=== PATIENT | male | born 1965 | race Caucasian/White ===

== ENCOUNTER 2020-08-12 15:45 | Outpatient (REF) | payer BC, SELFPAY | END 2020-08-12 15:46 | disposition home or self-care (01) | LOC: HO.LAB 15:45 | PROVIDERS: Visit Provider Internal Medicine | DX: Z20.828 Contact with and (suspected) exposure to other viral communicable diseases (principal) | CPT/HCPCS: 87635 ==

== ENCOUNTER 2023-08-23 10:59 | Outpatient (AMB) | payer BC, SELFPAY ==
--- NOTE | 2023-08-23 11:06 | MHC.OFFWIV ---
Intake Vital Signs 08/23/23 11:09 Height 5 ft 9 in Weight 208 lb BMI 30.7 BP 130/88 Blood Pressure Location Lt brachial Position Sitting Pulse 83 Pulse Source Pulse Oximeter Temp 98.0 F Pulse Oximetry (%) 97 Oxygen Delivery Method Room Air Intake Visit Reasons: EP SOB 1 week/RT Hamstring (pulled) Intake Note: pt is here today for SOB 1 week/RT hamstring mo ago and shortness of breath in the last week Allergies No Known Allergies Allergy (Unknown, Verified 08/23/23 11:07) Do you need a note to return to daycare/school/sports/work: Yes HPI HPI Comments History of Present Illness Details The patient presents Urgent Care for evaluation of shortness of breath. 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 Typically when he walks he does not have any difficulty with shortness of breath. He states that for the past week when he walks up inclines he developed some shortness of breath. He has never had this difficulty before. Patient does admit to cigarette smoking. He has never been diagnosed with COPD. He denies fever chills nausea vomiting. He does have a cough in the morning but this does not persist throughout the day. [facility] Medical History (Updated 01/10/21 @ 16:57 by Joe Stewart MD) Erectile dysfunction Fatty liver Pulmonary nodule Hypercholesterolemia Tobacco abuse Surgical History (Updated 09/07/20 @ 08:33 by DENNIS Shen) History of inguinal hernia repair Family History (Updated 09/07/20 @ 08:33 by DENNIS Shen) Father Liver cancer Hepatitis C Mother Lung cancer Review of Systems ENT Denies dizziness, Reports nasal congestion and Reports sore throat Card Denies rapid heart rate GI Denies dyspepsia and Denies heartburn Musc Denies arthralgias and Denies muscle cramps Neuro Denies dizziness, Denies focal weakness and Denies Other visual disturbances Physical Exam Vital Signs: Last Vital Signs Temp 98.0 F 08/23/23 11:09 Pulse 83 08/23/23 11:09 BP 130/88 08/23/23 11:09 Pulse Ox 97 08/23/23 11:09 Oxygen Delivery Method Room Air 08/23/23 11:09 BMI result Body Mass Index 30.7 Const General: healthy appearing and no acute distress HEENT Mouth: Normal oral and palatal mucosa present Resp Effort & Inspection: normal respiratory effort and able to speak in complete sentences Auscultation: clear to auscultation bilaterally Cardio Rate: regular rate Rhythm: regular rhythm Assessment & Plan Assessment & Plan (1) TATUM (dyspnea on exertion): Code(s): R06.09 - Other forms of dyspnea Plan Chest x-ray does not show any for infiltrates. Final report pending by Radiology. Given that the patient is experiencing dyspnea on exertion likely underlying COPD is my suspicion. We will prescribe albuterol to take with him to work and when he starts to feel short of breath to use 2 puffs every 4-6 hours. He is instructed follow up with his doctor for definitive diagnosis and possible referral to pulmonology. Patient comfortable with plan. Orders: Orders XR chest 2V Today R07.81 - Pleurodynia Medications: New albuterol sulfate 90 mcg/actuation 2 inhalations inhalation QID PRN 6.7 grams 0RF shortness of breath or wheezing inhalational spacing device (Aerochamber MV spacer) As directed 1 ea 0RF Coding Level of Care Code Est Pt Level 3 (81141) Diagnoses TATUM (dyspnea on exertion) R06.09
[2023-08-23 11:09] VITALS: BP 130/88; PULSE 83; TEMP 36.7; O2SAT 97; BMI 30.7
== END 2023-08-23 13:04 | disposition home or self-care (01) ==
PROVIDERS: PCP Family Medicine; Visit Provider Emergency Medicine
DX: R06.09 Other forms of dyspnea (principal)
CPT/HCPCS: 99213

== ENCOUNTER 2023-08-23 11:42 | Outpatient (REF) | payer BC, SELFPAY ==
--- NOTE | ~2023-08-23 | XR_ITS ---
EXAMINATION: XR CHEST CLINICAL INFORMATION: Cough. Shortness of breath. COMPARISON: 10/20/2019 TECHNIQUE: 2 views of the chest were obtained. FINDINGS: The lungs are well expanded. Patchy airspace disease at the right lung base. No pleural effusion. Cardiac silhouette is unchanged. XR/XR chest 2V IMPRESSION: Possible acute infiltrate at the right lung base. Advise clinical correlation. Follow-up imaging is recommended.
== END 2023-08-23 11:43 | disposition home or self-care (01) ==
LOC: HO.HMGCX 11:42
PROVIDERS: PCP Family Medicine; Visit Provider Internal Medicine Endocrinology, Diabetes & Metabolism
DX: R07.81 Pleurodynia (principal)
CPT/HCPCS: 71046

== ENCOUNTER 2023-09-20 22:50 | Emergency (ER) | payer BC, SELFPAY ==
--- NOTE | ~2023-09-20 | XR_ITS ---
EXAMINATION: XR CHEST CLINICAL INFORMATION: Chest wall and rib pain. COMPARISON: Radiographs of the chest done on 08/23/2023. TECHNIQUE: 2 views of the chest were obtained. FINDINGS: Previously documented linear airspace disease at right lung base persists. In addition, new linear airspace disease is noted at left lung base. The remainder of the lung hi are clear. The cardiomediastinal silhouette is within normal limit. No evidence of pleural effusion or pneumothorax. Visualized upper abdomen is unremarkable. XR/XR chest 2V IMPRESSION: Bibasilar airspace disease, persists on the right since 08/23/2023 and new on the left. No other significant change.
--- NOTE | ~2023-09-20 | CT_ITS ---
EXAMINATION: CT CHEST, ABDOMEN AND PELVIS WITH CONTRAST CLINICAL INFORMATION: Cough, right-sided chest and right upper quadrant pain COMPARISON: Chest CT 10/20/2019 TECHNIQUE: Multidetector volumetric imaging was performed through the chest, abdomen and pelvis following the administration of 85 mL of Omnipaque 350 intravenous contrast. Sagittal and coronal reformatted images were obtained on the technologist's workstation. Axial MIP volume rendering provided. This CT examination was performed using dose optimization techniques as appropriate, variously including the following: *Automated exposure control *Adjustment of mA and/or kV according to patient size (this includes techniques or standardized protocols for targeted exams where dose is matched to indication/reason for exam; i.e. extremities or head) *Use of iterative reconstruction technique DLP: 1026 mGy-cm FINDINGS: CHEST: Lungs: Mild emphysema at the lung apices. Mild bronchial wall thickening bilaterally. Curvilinear bibasilar opacities favor atelectasis. No additional consolidation. Mediastinum: The visualized thyroid gland is unremarkable. There are subcentimeter mediastinal lymph nodes within the range of normal variation. Cardiac size is within normal limits; no pericardial effusion. No evidence of aortic dissection. Pleura: No pneumothorax or pleural effusion. Chest Wall/Axilla: Unremarkable. ABDOMEN/PELVIS: Liver, Gallbladder, Biliary Tree: The liver demonstrates hypoattenuation suggesting steatosis. No focal hepatic lesion or biliary ductal dilatation is present. The gallbladder is unremarkable with no evidence of radiopaque gallstones, gallbladder wall thickening, or pericholecystic inflammatory changes. Pancreas: Unremarkable. Spleen: Unremarkable. Adrenal Glands: Unremarkable. Kidneys and Ureters: Bilateral nephrograms are symmetric. No hydronephrosis or obstructing calculus identified. Nonspecific bilateral perinephric stranding. A couple right upper pole renal cysts are noted; no follow-up recommended. Bladder: Unremarkable. Gastrointestinal Tract: Mild colonic diverticulosis. The small and large bowel are otherwise unremarkable without evidence of obstruction or pericolonic inflammatory change. The appendix is unremarkable. No free fluid or free air is seen. Abdominal Wall: Fat-containing left inguinal hernia. Lymphovascular Structures: Lymph nodes: Normal. Vascular: Scattered calcification along the aorta. Pelvic Viscera: Unremarkable. OSSEOUS STRUCTURES: Scattered degenerative endplate changes in the spine. CT/CT abdomen pelvis w IV con IMPRESSION: 1. No acute findings identified in the chest, abdomen, or pelvis. 2. Mild bronchial wall thickening, which can be seen with acute or chronic bronchitis. 3. Hepatic steatosis.
[2023-09-20 23:32] VITALS: BP 146/94; PULSE 105; RESP 20; TEMP 37.2; O2SAT 93; BMI 31.7
[2023-09-21 00:04] VITALS: BP 155/86; PULSE 101; RESP 20; O2SAT 93
--- NOTE | 2023-09-21 00:05 | ED_ITS ---
HPI - General Adult General Chief complaint: General Medical Stated complaint: Upper abd pain Time Seen by Provider: 09/21/23 00:04 Source: patient and other (Significant other, Carmen) Mode of arrival: ambulatory Limitations: no limitations History of Present Illness HPI narrative: 58-year-old male no significant past medical history who presents emergency department for evaluation of right upper abdominal pain x2 days. He states that he woke up with the pain yesterday, states the pain persisted all day long, pain was worse with coughing and with pushing on his right side of his abdomen. States the pain resolved when he woke up this morning the pain started again. He states the pain is constant, sharp, 10/10. The pain does not radiate to his back. Patient had a poor appetite today and did not eat his Thanksgiving meal but was able to snack on food. Patient states he has had a chronic cough for week and had a chest x-ray as an outpatient which was negative. He states he has had increased shortness of breath and dyspnea on exertion for weeks as well. He denied nausea, vomiting, diarrhea, fever, chills, frequency, urgency, dysuria, dark tarry stools or bloody stools. Patient does smoke 1 pack of cigarettes per day times 40 years. Patient drinks 6-7 nips of whiskey per day and 3-4 beers per day. Related Data Previous Rx's Medication Instructions Recorded albuterol sulfate 90 mcg/actuation 2 inh inhalation QID PRN shortness 08/23/23 aerosol inhaler of breath or wheezing #6.7 grams inhalational spacing device #1 ea 08/23/23 (Aerochamber MV spacer) Allergies Allergy/AdvReac Type Severity Reaction Status Date / Time No Known Allergies Allergy Unknown Verified 08/23/23 11:07 Review of Systems 2 Review of Systems: Yes all other systems are reviewed and are negative PMFSH Past Medical History [facility] Narrative: Social history: Patient smokes 1 pack of cigarettes per day times 40 years. He drinks 6-7 nips of whiskey per day and 3-4 beers per day. He denies drug use. Medical History Erectile dysfunction Fatty liver Pulmonary nodule Hypercholesterolemia Tobacco abuse Surgical History History of inguinal hernia repair Family History Family History Father Liver cancer Hepatitis C Mother Lung cancer Social History Smoked in Last 30 Days: Yes Advance Directives: No Advance Directives Information Provided: No Physical Exam ED Vital Signs: Vital Signs - 24 hr 09/20/23 23:32 09/21/23 00:04 Temperature 99 F Pulse Rate 105 H 101 H Respiratory Rate 20 20 Blood Pressure 146/94 H 155/86 H Pulse Oximetry 93 93 Oxygen Delivery Method Room Air Room Air BMI result Body Mass Index 31.7 Vital signs revealed an elevated blood pressure and elevated heart rate of 105. Exam: General: Awake, alert in no distress elevated BMI of 31.7. Head: Normocephalic, atraumatic EENT: PERRL, Lids normal, sclera normal, conjunctiva normal, nose normal , ears normal, throat without erythema or exudates Neck: Supple, no adenopathy, no trachea midline or C-spine tenderness Lung: breath sounds symmetric, no wheezing, rales or rhonchi Chest: symmetric movement, nontender Heart: regular rate and rhythm, normal S1, S2 no murmurs or rubs Abdomen: soft, obese, moderate to severe tenderness right upper quadrant, nondistended, normal bowel sounds Back: no vertebral tenderness, no CVAT Extremities: no deformities, moves all extremities symmetrically Skin: no rashes, no lesion, normal color and warmth Neuro: Awake, alert, oriented, normal speech, cranial nerves intact, moves all extremities symmetrically Psych: Pleasant, cooperative Medications Administered Discontinued Medications Generic Name Dose Route Start Last Admin Trade Name Freq PRN Reason Stop Dose Admin Sodium Chloride 1,000 mls @ 999 mls/hr 09/21/23 00:38 09/21/23 01:06 Ns IV 09/21/23 01:38 999 mls/hr .Q1H1M STA Administration Iohexol 85 ml 09/21/23 02:15 09/21/23 02:16 Iohexol 350 Mg/Ml 100 Ml Infus..Btl IV 09/21/23 02:16 85 ml ONCE ONE Administration Morphine Sulfate 4 mg 09/21/23 00:38 09/21/23 01:09 Morphine Sulfate 4 Mg/Ml Cartridge IVPUSH 09/21/23 00:39 4 mg ONCE STA Administration Protocol Ondansetron HCl 4 mg 09/21/23 00:38 09/21/23 01:08 Ondansetron Hcl 4 Mg/2 Ml Vial IVPUSH 09/21/23 00:39 4 mg ONCE ONE Administration Medical Decision Making Medical Decision Making [facility] Narrative: 58-year-old male with history of tobacco use disorder and alcohol use disorder (drinks 6-7 nips of whiskey per day in 2-3 beers per day) who presents emergency department for evaluation of 2 days of right upper quadrant pain with loss of appetite and 2-3 weeks of persistent cough, shortness of breath and dyspnea on exertion. Vital signs revealed an elevated blood pressure and elevated heart rate. Physical examination revealed significant right upper quadrant tenderness. Following evaluation was ordered: CBC, CMP, lipase, PT/INR, PTT, lactic acid, blood cultures x2, troponin, ethanol level, EKG, two view chest x-ray, CT scan of the chest abdomen pelvis with IV contrast Patient was ordered to get morphine 4 mg IV, Zofran 4 mg IV and normal saline IV x1 L 02:27 My interpretation patient's laboratory evaluation as follows: CBC was normal AST and ALT are elevated 48 and 90. Alk-phos was normal. Bilirubin was normal. Lipase was normal. Lactated Ringer's was normal at 1.3. Laboratory evaluation was nonspecific. Chest x-ray, 2 consistent with bilateral airspace disease versus atelectasis more prominent on the right than on the left. Patient is feeling better after the above treatment, he still has right upper quadrant pain, therefore was ordered to get morphine 4 mg IV and lactated Ringer's at 125 cc/hours CT scan of the chest abdomen pelvis IV contrast is pending. At the end of my shift, patient's care was turned over to my colleague, Dr. Kel Gonzalez. Differential Diagnosis Differential Diagnoses: The differential diagnosis associated with the presentation includes Differential diagnosis includes but is not limited to perforation cholecystitis, cholangitis, pancreatitis, pneumonia, pulmonary malignancy, electrolyte abnormalities, anemia Admission/Observation Consideration of admission/observation: Escalation of care including admission/observation considered Lab Data [facility] Lab Attestation statement: I reviewed the patient's lab results. See [facility] 09/21/23 01:05 09/21/23 01:05 Labs: Lab Results 09/21/23 Range/Units 01:05 WBC 7.0 (4.8-10.8) X10*3/uL RBC 4.54 L (4.60-5.80) X10*6/uL Hgb 15.3 (14.0-18.0) g/dl Hct 42.8 (42.0-52.0) % MCV 94.3 (80.0-98.0) fL MCH 33.7 H (27.0-33.0) pg MCHC 35.7 (31.0-36.0) g/dl RDW 12.3 (11.0-16.0) % Plt Count 210 (160-400) X10*3/uL MPV 9.6 (9.4-12.4) fL Immature Gran % (Auto) 1.0 H (0.0-0.4) % Neut % (Auto) 55.3 (45-73) % Lymph % (Auto) 32.6 (20-40) % [place] % (Auto) 8.0 (2-11) % Eos % (Auto) 2.4 (0-4) % Baso % (Auto) 0.7 (0-2) % Lymph # (Auto) 2.3 (1.2-4.9) X10*3/uL [place] # (Auto) 0.6 (0.1-1.2) X10*3/uL Eos # (Auto) 0.2 (0.0-0.4) X10*3/uL Baso # (Auto) 0.1 (0.0-0.2) X10*3/uL Abs Immat Gran (auto) 0.07 H (0.00-0.03) X10*3/uL Absolute Neuts (auto) 3.9 (2.0-8.3) x10*3/uL Absolute Nucleated RBC 0.000 (0.0-0.012) X10*3/uL Nucleated RBC % (auto) 0.0 (0.0-0.2) /100WBC PT 10.3 L (11.1-13.3) SEC INR 0.8 L (0.9-1.1) APTT 27.2 (26.0-36.4) SEC Sodium 143 (135-145) mmol/L Potassium 4.0 (3.3-5.1) mmol/L Chloride 108 (96-108) mmol/L Carbon Dioxide 23 (22-29) mmol/L Anion Gap 16 (12-20) BUN 10 (9-16) mg/dL Creatinine 0.86 (0.5-1.4) mg/dL Estim Creat Clear Calc 105.0 Estimated GFR > 60 Random Glucose 106 (60-115) mg/dL Lactic Acid 1.3 (0.5-2.0) mmol/L Calcium 9.1 (8.4-10.2) mg/dL Total Bilirubin 0.3 (0.0-1.0) mg/dL AST 48 H (5-37) U/L ALT 90 H (0-40) U/L Alkaline Phosphatase 70 (39-117) U/L Troponin I High Sens 4.0 (<3.5-35.0) ng/L Total Protein 7.0 (6.5-8.0) g/dL Albumin 4.2 (3.5-5.0) g/dL Lipase 28 (8-78) U/L Ethyl Alcohol 30 mg/dL Independent Interpretation I performed an independent interpretation of an: EKG Interpretation: My independent interpretation patient's 12 EKG done at 00:57 hours is as follows: Sinus tachycardia with rate of 103, normal CO interval, QRS duration QTC interval, no ST segment elevation, no ST segment depression, no T-wave abnormalities, no PACs, no PVCs except for the tachycardia this is a normal EKG My independent interpretation of the patient's two view chest x-ray is as follows: Bilateral atelectasis but no acute infiltrate. Radiologist describes the x-ray as bibasilar airspace disease persistent on the right since 08/23/2023 Radiology Impression Discussion of test interpretation with radiology: I have reviewed the radiologist's reading. Radiologist Impression: XR chest 2V IMPRESSION: Bibasilar airspace disease, persists on the right since 08/23/2023 and new on the left. No other significant change. Dictated By: Johan Husain MD Discharge Plan Discharge Clinical Impression: Tobacco abuse, Alcohol use disorder Abdominal pain Qualifiers: Abdominal location: right upper quadrant Qualified Code(s): R10.11 - Right upper quadrant pain Patient Disposition: Still a Patient Prescriptions: No Action albuterol sulfate 90 mcg/actuation HFA aerosol inhaler 2 inh inhalation QID PRN (Reason: shortness of breath or wheezing) Qty: 6.7 0RF (DME) Aerochamber MV Spacer See Rx Instructions .ROUTE .MEDSUPPLY Qty: 1 0RF Rx Instructions: As directed
--- NOTE | 2023-09-21 00:40 | ECG_ITS ---
Test Reason : ABD PAIN Blood Pressure : / mmHG Vent. Rate : 103 BPM Atrial Rate : 103 BPM P-R Int : 146 ms QRS Dur : 088 ms QT Int : 348 ms P-R-T Axes : 074 021 027 degrees QTc Int : 455 ms Sinus tachycardia RSR' or QR pattern in V1 suggests right ventricular conduction delay Abnormal ECG When compared with ECG of 11-MAY-2009 09:55, Vent. rate has increased BY 35 BPM Referred By: Jewel Gardner Electronically Signed By:KENY CARLISLE MD
[2023-09-21] MEDS: 0.9 % Sodium Chloride 1,000 ML 999 ML IV (01:06)
[2023-09-21] MEDS: ondansetron HCL 4 MG/2 ML VIAL IVPUSH (01:08)
[2023-09-21] MEDS: Morphine Sulfate 4 MG/ML CARTRIDGE IVPUSH ×2 (01:09→02:38)
[2023-09-21 01:14] LABS: MANUAL DIFF FLAG NO
[2023-09-21 01:16] LABS: Basophils Absolute Auto 0.1 X10*3/uL (0.0-0.2); Basophils Percent Auto 0.7 % (0-2); Eosinophils Absolute Auto 0.2 X10*3/uL (0.0-0.4); Eosinophils Percent Auto 2.4 % (0-4); Hematocrit 42.8 % (42.0-52.0); Hemoglobin 15.3 g/dl (14.0-18.0); Imm Gran Abs Auto 0.07 X10*3/uL (0.00-0.03); Lymphocytes Absolute Auto 2.3 X10*3/uL (1.2-4.9); Lymphocytes Percent Auto 32.6 % (20-40); Mean Corpuscular HGB Conc 35.7 g/dl (31.0-36.0); Mean Corpuscular Hemoglobin 33.7 pg (27.0-33.0); Mean Corpuscular Volume 94.3 fL (80.0-98.0); Mean Platelet Volume 9.6 fL (9.4-12.4); Monocytes Absolute Auto 0.6 X10*3/uL (0.1-1.2); Neutrophils Absolute Auto 3.9 x10*3/uL (2.0-8.3); Neutrophils Percent Auto 55.3 % (45-73); Platelet Count 210 X10*3/uL (160-400); Red Blood Count 4.54 X10*6/uL (4.60-5.80); Red Cell Distribution Width 12.3 % (11.0-16.0)
[2023-09-21 01:24] LABS: Lactic Acid 1.3 mmol/L (0.5-2.0)
[2023-09-21 01:29] LABS: Alanine Aminotransferase 90 U/L (0-40); Albumin Level 4.2 g/dL (3.5-5.0); Alkaline Phosphatase 70 U/L (39-117); Anion Gap 16 (12-20); Aspartate Amino Transferase 48 U/L (5-37); Bilirubin Total 0.3 mg/dL (0.0-1.0); Blood Urea Nitrogen 10 mg/dL (9-16); Calcium 9.1 mg/dL (8.4-10.2); Carbon Dioxide 23 mmol/L (22-29); Chloride 108 mmol/L (96-108); Estimated Glomerular Filt Rate > 60; Ethanol 30 mg/dL; Glucose Random 106 mg/dL (60-115); Lipase 28 U/L (8-78); Sodium 143 mmol/L (135-145)
[2023-09-21 01:38] LABS: INTERNATIONAL NORM RATIO 0.8 (0.9-1.1); Prothrombin Time 10.3 SEC (11.1-13.3)
[2023-09-21 01:40] LABS: Partial Thromboplastin Time 27.2 SEC (26.0-36.4)
[2023-09-21] MEDS: iohexoL 350 MG/ML 100 ML INFUS..BTL 85 ML IV (02:16)
[2023-09-21] MEDS: Lactated Ringers 1,000 ML 125 ML IVCONT (02:33)
[2023-09-21 04:04] LABS: Influenza A PCR NEGATIVE (Negative); Influenza B PCR NEGATIVE (Negative); Resp Syncy Virus RNA Qual PCR NEGATIVE (Negative); SARS COV2 PCR INHOUSE NEGATIVE (Negative)
[2023-09-21] MEDS: Morphine Sulfate Immed Release 15 MG TABLET PO (04:11)
[2023-09-21] MEDS: Amoxicillin/Potassium Clav 875 MG TABLET PO (04:11)
[2023-09-21] MEDS: guaiFEN/Codeine SF 200/20/10ML 10 ML LIQUID PO (04:12)
[2023-09-21 04:26] VITALS: BP 154/89; PULSE 98; RESP 20; O2SAT 93
== END 2023-09-21 04:26 | disposition home or self-care (01) ==
PROVIDERS: Emergency Medicine Emergency Medical Services; Emergency Provider Internal Medicine; PCP Internal Medicine
DX: R10.11 Right upper quadrant pain (principal); Z20.822 Contact with and (suspected) exposure to COVID-19; Z20.828 Contact with and (suspected) exposure to other viral communicable diseases; F10.20 Alcohol dependence, uncomplicated; Y90.1 Blood alcohol level of 20-39 mg/100 ml; K76.0 Fatty (change of) liver, not elsewhere classified; E78.00 Pure hypercholesterolemia, unspecified; J42 Unspecified chronic bronchitis; R06.02 Shortness of breath; F17.210 Nicotine dependence, cigarettes, uncomplicated; Z79.899 Other long term (current) drug therapy
CPT/HCPCS: 0241U; 36415; 71046; 71260; 74177; 80053; 80307; 83605; 83690; 84484; 85025; 85610; 85730; 87040; 93005; 96361; 96374; 96376; 99285; J2270; J2405; J7120; Q9967

== ENCOUNTER 2023-10-10 16:19 | Outpatient (AMB) | payer BC, SELFPAY ==
[2023-10-10 16:23] VITALS: BP 162/90; PULSE 80; O2SAT 98; BMI 30.9
--- NOTE | 2023-10-10 16:23 | MHC.PC.OV ---
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 Accompanied by: Self / Same As Patient Allergies No Known Allergies Allergy (Unknown, Verified 10/10/23 17:01) Medication List - Last Reconciled 10/10/23 by Eugenio Ortiz MD albuterol sulfate 90 mcg/actuation 2 inhalations inhalation QID PRN benzonatate 200 mg PO TID PRN ibuprofen 600 mg PO Q6H PRN inhalational spacing device (Aerochamber MV spacer) As directed morphine 15 mg PO Q8H PRN Tobacco use date assessed: 10/10/23 Dental Screening Dental Screen Date: 10/10/23 Did you have a dental visit in the last 12 months?: No Did you have a dental problem in the last 6 months where you did not have access to dental care?: No Was dental information given to patient?: No HPI est care HPI Details Patient comes in today for an annual physical examination and to reestablish care - he was last seen by Dr. Momin a few years ago on 09/03/2019 and has not been back since States that he has a recurrent cough that has been ongoing for a while now Recalls presenting to the walk-in clinic a couple of months ago (July 2023) with increasing SOB Chest x-rays done at the time revealed possible changes suggestive of basilar airspace disease on the right side but no acute infiltrates and he was started on an Albuterol inhaler at the time with instructions to follow up with his PCP for further evaluation He went to the ER last month on 09/21/23 for increased pain over his right lower chest wall/ribs - recalls that he had an episode 2 weeks prior wherein he sneezed violently and the pain over his right lower chest wall area started since He also continues with recurrent cough and congestion from a month ago but denies any increased SOB Chest CT done in the ER came out showing only mild bronchial thickening, suggestive of either acute or chronic bronchitis but otherwise no acute infiltrates Abdominal CT came back normal with pertinent findings only of hepatosteatosis Chest x-rays showed (+) bibasilar airspace disease, persistent on the right since 08/23/2023 and new on the left He was started on empiric Tx with Augmentin and instructed to continue using his inhaler Patient feels that his cough has improved only slightly with his most recent antibiotic treatment States that his cough seems to be worse at night and is mostly nonproductive although he does cough up thick whitish to clear phlegm at times He denies any fever or sore throat; denies any headaches or dizziness Denies any chest pains No nausea / vomiting, no abdominal pain No change in bowel habits noted Denies any acute urinary symptoms He had his screening colonoscopy done with Dr. Rose back in 2019 and was advised to have a repeat colonoscopy done in 10 years [facility] Medical History (Updated 10/11/23 @ 05:55 by Eugenio Ortiz MD) Obesity (BMI 30-39.9) Smoker Elevated LFTs Mixed hyperlipidemia Erectile dysfunction Fatty liver Pulmonary nodule Hypercholesterolemia Tobacco abuse Surgical History (Updated 10/10/23 @ 17:47 by Eugenio Ortiz MD) Hx of colonoscopy (~02/24/19) History of inguinal hernia repair Family History Father Liver cancer Hepatitis C Mother Lung cancer Social History (Updated 10/10/23 @ 17:05 by Eugenio Ortiz MD) Housing: House Alcohol intake: current Alcohol intake frequency: 3 or more drinks per day Comment: 4 to 6 drinks a day (whiskey/nips) Patient Tobacco Use Status: Current everyday Tobacco user Tobacco use type: Cigarette Cigarette Packs Per Day: 1 Years Smoked: smoking since 12 y/o e-Cigarette/Vaping Use: Never Used service: No Current occupational status: employed Cognitive needs: No Hearing needs: No Vision needs: No Questionnaire PHQ-9 Over the last 2 weeks, how often have you been bothered by any of the following problems? 1. Little interest or pleasure in doing things: not at all 2. Feeling down, depressed, or hopeless: not at all 3. Trouble falling or staying asleep, or sleeping too much: not at all 4. Feeling tired or having little energy: not at all 5. Poor appetite or overeating: not at all 6. Feeling bad about yourself - or that you are a failure or have let yourself or your family down: not at all 7. Trouble concentrating on things, such as reading the newspaper or watching television: not at all 8. Moving or speaking so slowly that other people could have noticed. Or the opposite - being so fidgety or restless that you have been moving around a lot more than usual: not at all 9. Thoughts that you would be better off or of hurting yourself in some way: not at all Total score: 0 Depression Screening Interpretation: Negative Depression Screening Done: Yes 51049 - PHQ-9 Billing: Yes Source: Developed by Drs. Rainer Murdock, Fiona Coe, Jared Yan and colleagues, with an educational taylor from [employer]. Thrive Questionnaire Date Thrive assessed: 10/10/23 I am a: Patient What is your living situation today?: I have a steady place to live Within the past 12 months, did the food you bought not last and you didn't have the money to get more?: Never true Within the past 12 months, did you worry whether your food would run out before you got money to buy more?: Never true Do you have trouble paying for medicines?: No Do you have trouble getting transportation to medical appointments?: No Do you have trouble paying your heating and electricity bill?: No Do you have trouble taking care of your child, family member or friend?: No Do you have trouble with day-to-day activities such as bathing, preparing meals, shopping, managing finances, etc.?: No Are you currently unemployed and looking for a job?: No Are you interested in more education?: No Please select the resources that you would like help with: None Currently or been in a relationship where the following occur: no concerns reported AUDIT C Alcohol Use Questionnaire (AUDIT-C) 1. How often do you have a drink containing alcohol?: 4 or more times a week 2. How many drinks containing alcohol do you have on a typical day when you are drinking?: 3 or 4 3. How often do you have six or more drinks on one occasion?: Weekly Total Score: 8 Score Reviewed/Action Taken: Yes BRIANNA-7 AMB Questionnaire BRIANNA-7 Date BRIANNA - 7 assessed: 10/10/23 Feeling nervous, anxious, or on edge: 0 = Not at all Not being able to stop or control worryin = Not at all Worrying too much about different things: 0 = Not at all Trouble relaxin = Not at all Being so restless that it is hard to sit still: 0 = Not at all Becoming easily annoyed or irritable: 0 = Not at all Feeling afraid as if something awful might happen: 0 = Not at all Total BRIANNA-7 score (0-4 normal; 5-9 mild; 10-14 moderate; 15-21 severe): 0 Source: Developed by Drs. Rainer Murdock, Fiona Coe, Jared Yan and colleagues, with an educational taylor from [employer]. Review of Systems Const Denies chills, Denies fatigue, Denies fever(s), Denies headache(s), Denies malaise and Denies weakness Eyes Denies blurry vision, Denies change in vision, Denies irritation and Denies itchy eyes ENT Denies dysphagia, Denies dizziness, Denies otalgia, Denies headache(s), Denies nasal congestion, Denies neck pain, Denies odynophagia and Denies sore throat Card Denies chest pain, Denies rapid heart rate, Denies irregular heart rhythm, Denies palpitations and Reports dyspnea on exertion (at times, mostly mild) Resp Denies chest congestion, Reports cough (recurrent - see HPI), Reports dyspnea on exertion (at times, mostly mild) and Denies wheezing GI Denies abdominal pain, Denies bloating, Denies constipation, Denies dysphagia, Denies heartburn, Denies diarrhea, Denies nausea, Denies odynophagia and Denies vomiting Denies hematuria, Denies difficulty urinating, Denies dysuria, Denies urinary frequency and Denies urinary urgency Musc Denies back pain, Denies arthralgias, Denies joint swelling, Denies muscle weakness and Denies neck pain Skin/Breast Denies change in pigmentation, Denies lesions, Denies rash and Denies unusual bruising Neuro Denies dizziness, Denies headache(s), Denies paresthesias and Denies weakness Endo Denies fatigue and Denies palpitations Aller/Immun Denies itchy eyes and Denies wheezing Physical exam (Primary Care) Vital Signs: Last Vital Signs Pulse 80 10/10/23 16:23 BP 162/90 H 10/10/23 16:23 Pulse Ox 98 10/10/23 16:23 Oxygen Delivery Method Room Air 10/10/23 16:23 BMI result Body Mass Index 30.9 Tobacco/Smoking Status: Tobacco use Status Tobacco use date assessed 10/10/23 10/10/23 16:31 Patient Tobacco Use Status Current everyday Tobacco 10/10/23 17:05 Tobacco use type Cigarette 10/10/23 17:05 e-Cigarette/Vaping Use Never Used 10/10/23 17:05 PHQ-9: PHQ-9 Score PHQ-9: Total score 0 10/10/23 17:05 Depression Screening Interpretation: Negative Thrive Assessment: Date of Thrive Assessment Date Thrive assessed 10/10/23 10/10/23 16:31 Currently or been in a relationship where the following occur: no concerns reported Const General: no acute distress, alert and awake Orientation/consciousness: patient oriented x3 HENMT Head: Yes normocephalic and Yes atraumatic Ears: external ears normal, TM's normal bilaterally and EAC's normal General nose exam: No nasal discharge present Face and sinus: Yes normal facial exam and Yes sinuses nontender Teeth and gingiva: dentition normal Throat: Yes posterior oropharynx normal and Yes tonsils normal (no TP congestion) Eyes Eyelids: Yes eyelids normal Conjunctivae: conjunctivae normal Pupils: Equal, round and reactive pupils present EOM: EOMs intact bilaterally Neck Neck: Yes no lymphadenopathy and Yes supple Thyroid: Thyroid normal Resp Auscultation: no rales, rhonchi (scattered) throughout, wheezes (occasional, faint) expiratory wheezes, diminished lung sounds bilateral and bronchial breath sounds (occasional) bilateral Cardio Rate: regular rate Rhythm: regular rhythm Heart sounds: no murmurs GI Palpation (GI): Soft to palpation, nontender and No hepatosplenomegaly present Auscultation: normal bowel sounds General: Yes no CVA tenderness Back/Spine/Pelvis Back: no CVA tenderness Thoracic/Lumbar Spine: thoracic and lumbar spine normal to inspection Skin Lesions: no lesions Rashes: no rashes Neuro General: patient oriented x3, moves all extremities, no focal motor deficits and CN's II-XI intact bilaterally Cranial nerves: Yes Equal, round and reactive pupils present Cognition (Neuro): normal cognition Gait exam (Neuro): Normal gait present Extrem General: Yes no clubbing, cyanosis or edema Assessment and Plan Assessment & Plan (1) Annual physical exam: Code(s): Z00.00 - Encounter for general adult medical examination without abnormal findings Plan: Check labs He is up-to-date with his colon cancer screening - will be due for repeat colonoscopy in 2028 (2) COPD exacerbation: Code(s): J44.1 - Chronic obstructive pulmonary disease with (acute) exacerbation Plan: Will start patient on oral Prednisone 20 mg QD x 5 days Will start him as well on Trelegy 100-62.5-25 mcg 1 inhalation QD as instructed Continue Albuterol HFA 2 inhalations Q 6 hours PRN Will also send patient for PFTs for further evaluation (3) Elevated blood pressure reading: Code(s): R03.0 - Elevated blood-pressure reading, without diagnosis of hypertension Plan: Reinforced low sodium diet Patient is instructed to continue monitoring his blood pressure regularly Advised that our nurse navigators will also be reaching out to him in a couple of weeks or so to help monitor his blood pressure (4) Mixed hyperlipidemia: Code(s): E78.2 - Mixed hyperlipidemia Plan: Reinforced low cholesterol diet Will recheck his fasting lipids LEVI for follow up (5) Elevated LFTs: Code(s): R79.89 - Other specified abnormal findings of blood chemistry Plan: Reminded that his LFTs were elevated on his recent labs Discussed that this is likely related to his weight and also to some extent, maybe his cholesterol level His recent abdominal CT done in the ER also revealed (+) hepatosteatosis Advised that losing weight wiil help resolve this gradually (6) Smoker: Code(s): F17.200 - Nicotine dependence, unspecified, uncomplicated Plan: He is counseled on smoking cessation, especially in light of his recent respiratory symptoms (7) Obesity (BMI 30-39.9): Code(s): E66.9 - Obesity, unspecified Plan: Reinforced diet/exercise as tolerated/lose weight Plan Follow up in 2 months Orders: Orders Lipid Panel 10/10/23 E78.00 - Pure hypercholesterolemia, unspecified, Z00.00 - Encounter for general adult medical examination without abnormal findings UA CC w/rflx Micro + Cult 10/10/23 R30.0 - Dysuria, Z00.00 - Encounter for general adult medical examination without abnormal findings Complete Blood Count Auto Diff 12/13/23 J44.1 - Chronic obstructive pulmonary disease with (acute) exacerbation, Z00.00 - Encounter for general adult medical examination without abnormal findings Comprehensive Egan. Panel Fast 10/10/23 J44.1 - Chronic obstructive pulmonary disease with (acute) exacerbation, Z00.00 - Encounter for general adult medical examination without abnormal findings TSH reflex Free T4 10/10/23 E78.00 - Pure hypercholesterolemia, unspecified, Z00.00 - Encounter for general adult medical examination without abnormal findings Vitamin D 25-OH Total 10/10/23 E55.9 - Vitamin D deficiency, unspecified, Z00.00 - Encounter for general adult medical examination without abnormal findings Prostate Specific Antigen 10/10/23 N40.0 - Benign prostatic hyperplasia without lower urinary tract symptoms, Z00.00 - Encounter for general adult medical examination without abnormal findings PFT pulmonary function test 10/10/23 J44.9 - Chronic obstructive pulmonary disease, unspecified Medications: New [id number] 100-62.5-25 mcg (Trelegy Ellipta) 1 inh inhalation DAILY 30 days 30 ea 5RF J44.1 - Chronic obstructive pulmonary disease with (acute) exacerbation prednisone 20 mg PO DAILY 5 days 5 tabs 0RF J44.1 - Chronic obstructive pulmonary disease with (acute) exacerbation Discontinued morphine Partial Fill upon patient request. Discontinued Reason: Patient no longer taking 15 mg PO Q8H PRN 20 tabs 0RF pain Coding Level of Care Code New Pt Prev Care 40-64y(85660) Diagnoses Annual physical exam Z00.00 COPD exacerbation J44.1 Elevated blood pressure reading R03.0 Mixed hyperlipidemia E78.2 Elevated LFTs R79.89 Smoker F17.200 Obesity (BMI 30-39.9) E66.9
== END 2023-10-10 17:23 | disposition home or self-care (01) ==
PROVIDERS: PCP Internal Medicine; Visit Provider Internal Medicine
DX: Z00.00 Encounter for general adult medical examination without abnormal findings (principal); J44.1 Chronic obstructive pulmonary disease with (acute) exacerbation; R03.0 Elevated blood-pressure reading, without diagnosis of hypertension; E78.2 Mixed hyperlipidemia; R79.89 Other specified abnormal findings of blood chemistry
CPT/HCPCS: 99386

== ENCOUNTER 2024-01-18 06:18 | Outpatient (REF) | payer BC, SELFPAY ==
[2024-01-18 06:29] LABS: MANUAL DIFF FLAG NO
[2024-01-18 08:09] LABS: Appearance Urine Clear; Color Urine Yellow; Glucose Urine UA Negative (Negative); Leukocyte Esterase Urine Negative (Negative); Nitrite Urine Negative (Negative); PH 6.5 (5.0-9.0); Urine Blood Negative (Negative); Urine Ketones Negative (Negative); Urine Protein Negative (Neg-Trace)
[2024-01-18 08:14] LABS: Basophils Percent Auto 0.5 % (0-2); Eosinophils Absolute Auto 0.2 X10*3/uL (0.0-0.4); Eosinophils Percent Auto 2.8 % (0-4); Hematocrit 48.3 % (42.0-52.0); Imm Gran Abs Auto 0.03 X10*3/uL (0.00-0.03); Imm Gran Pct Auto 0.4 % (0.0-0.4); Lymphocytes Absolute Auto 2.5 X10*3/uL (1.2-4.9); Lymphocytes Percent Auto 28.8 % (20-40); Mean Corpuscular HGB Conc 35.2 g/dl (31.0-36.0); Mean Corpuscular Hemoglobin 33.1 pg (27.0-33.0); Mean Platelet Volume 10.1 fL (9.4-12.4); Monocytes Absolute Auto 0.7 X10*3/uL (0.1-1.2); Monocytes Percent Auto 8.2 % (2-11); Neutrophils Absolute Auto 5.1 x10*3/uL (2.0-8.3); Neutrophils Percent Auto 59.3 % (45-73); Platelet Count 251 X10*3/uL (160-400); Red Blood Count 5.14 X10*6/uL (4.60-5.80); Red Cell Distribution Width 12.2 % (11.0-16.0); White Blood Count 8.5 X10*3/uL (4.8-10.8)
[2024-01-18 08:55] LABS: Prostate Specific Antigen 0.88 ng/mL (<0.05-4.0)
[2024-01-18 09:01] LABS: Alanine Aminotransferase 35 U/L (0-40); Albumin Level 4.4 g/dL (3.5-5.0); Alkaline Phosphatase 67 U/L (39-117); Anion Gap 13 (12-20); Aspartate Amino Transferase 21 U/L (5-37); Bilirubin Total 0.8 mg/dL (0.0-1.0); Blood Urea Nitrogen 13 mg/dL (9-16); Calcium 9.6 mg/dL (8.4-10.2); Carbon Dioxide 28 mmol/L (22-29); Chloride 104 mmol/L (96-108); Cholesterol 252 mg/dL (<200); Estimated Glomerular Filt Rate > 60; Glucose Fasting 94 mg/dL (60-99); HDL Cholesterol 50 mg/dL (>40); LDL Cholesterol Calculated 178 mg/dL (<100); Potassium 3.8 mmol/L (3.3-5.1); Sodium 141 mmol/L (135-145); Total Protein 6.9 g/dL (6.5-8.0); Triglycerides 123 mg/dL (<150)
[2024-01-18 09:04] LABS: TSH reflex Free T4 2.37 uIU/mL (0.32-4.0); Vitamin D 25-OH Total 20.9 ng/mL (>30)
== END 2024-01-18 06:19 | disposition home or self-care (01) ==
LOC: HO.LAB 06:18
PROVIDERS: PCP Internal Medicine; Visit Provider Internal Medicine
DX: Z00.00 Encounter for general adult medical examination without abnormal findings (principal); Z12.5 Encounter for screening for malignant neoplasm of prostate; J44.1 Chronic obstructive pulmonary disease with (acute) exacerbation; N40.0 Benign prostatic hyperplasia without lower urinary tract symptoms; R30.0 Dysuria; E55.9 Vitamin D deficiency, unspecified; E78.00 Pure hypercholesterolemia, unspecified
CPT/HCPCS: 36415; 80053; 80061; 81003; 82306; 84153; 84443; 85025

== ENCOUNTER 2024-01-21 14:15 | Outpatient (AMB) | payer BC, SELFPAY ==
[2024-01-21 14:25] VITALS: BP 114/62; PULSE 91; O2SAT 94; BMI 28.8
--- NOTE | 2024-01-21 14:25 | MHC.PC.OV ---
Vital Signs 01/21/24 14:25 Height 5 ft 9 in Weight 195 lb BMI 28.8 BP 114/62 Blood Pressure Location Lt brachial Position Sitting Pulse 91 Pulse Source Pulse Oximeter Pulse Oximetry (%) 94 Oxygen Delivery Method Room Air Intake Visit Reasons: follow up Can Machine Operator Required: No Disease Control Inspector: Not Required per policy Accompanied by: Self / Same As Patient Allergies No Known Allergies Allergy (Unknown, Verified 01/21/24 14:52) Medication List - Last Reconciled 01/21/24 by Eugenio Ortiz MD albuterol sulfate 90 mcg/actuation 2 inhalations inhalation QID PRN xycpfpyycmp-ogzjgsujw-wybebrmo 100-62.5-25 mcg (Trelegy Ellipta) 1 inh inhalation DAILY 30 days ibuprofen 600 mg PO Q6H PRN inhalational spacing device (Aerochamber MV spacer) As directed Tobacco use date assessed: 01/21/24 Dental Screening Dental Screen Date: 01/21/24 Did you have a dental visit in the last 12 months?: No Did you have a dental problem in the last 6 months where you did not have access to dental care?: No Was dental information given to patient?: Patient has dentist HPI follow up HPI Details Patient comes in today for his follow up visit States that he feels okay He denies any headaches or dizziness Denies any chest pains, no SOB - states that his breathing has improved a lot with Trelegy Ellipta and he hardly has to use his Albuterol inhaler lately No nausea/vomiting, no abdominal pain No change in bowel habits noted Needs his Trelegy Ellipta Rx refilled Had his follow up labs done a few days ago - to discuss his results [facility] Medical History Vitamin D deficiency Obesity (BMI 30-39.9) Smoker Elevated LFTs Mixed hyperlipidemia Erectile dysfunction Fatty liver Pulmonary nodule Hypercholesterolemia Tobacco abuse Surgical History Hx of colonoscopy (~02/24/19) History of inguinal hernia repair Family History Father Liver cancer Hepatitis C Mother Lung cancer Social History (Updated 01/21/24 @ 15:21 by Eugenio Ortiz MD) Housing: House Alcohol intake: former Year quit: 2023 Comment: 4 to 6 drinks a day (whiskey/nips) - quit drinking in October 2023 Patient Tobacco Use Status: Current everyday Tobacco user Tobacco use type: Cigarette Cigarette Packs Per Day: 1 Years Smoked: smoking since 12 y/o e-Cigarette/Vaping Use: Never Used service: No Current occupational status: employed Cognitive needs: No Hearing needs: No Vision needs: No Questionnaire PHQ-9 Over the last 2 weeks, how often have you been bothered by any of the following problems? 1. Little interest or pleasure in doing things: not at all 2. Feeling down, depressed, or hopeless: not at all 3. Trouble falling or staying asleep, or sleeping too much: not at all 4. Feeling tired or having little energy: not at all 5. Poor appetite or overeating: not at all 6. Feeling bad about yourself - or that you are a failure or have let yourself or your family down: not at all 7. Trouble concentrating on things, such as reading the newspaper or watching television: not at all 8. Moving or speaking so slowly that other people could have noticed. Or the opposite - being so fidgety or restless that you have been moving around a lot more than usual: not at all 9. Thoughts that you would be better off or of hurting yourself in some way: not at all Total score: 0 Depression Screening Interpretation: Negative Depression Screening Done: Yes 49788 - PHQ-9 Billing: Yes Source: Developed by Drs. Rainer Murdock, Fiona Coe, Jared Yan and colleagues, with an educational taylor from [employer]. Thrive Questionnaire Date Thrive assessed: 01/21/24 I am a: Patient What is your living situation today?: I have a steady place to live Within the past 12 months, did the food you bought not last and you didn't have the money to get more?: Never true Within the past 12 months, did you worry whether your food would run out before you got money to buy more?: Never true Do you have trouble paying for medicines?: No Do you have trouble getting transportation to medical appointments?: No Do you have trouble paying your heating and electricity bill?: No Do you have trouble taking care of your child, family member or friend?: No Do you have trouble with day-to-day activities such as bathing, preparing meals, shopping, managing finances, etc.?: No Are you currently unemployed and looking for a job?: No Are you interested in more education?: No Please select the resources that you would like help with: None Currently or been in a relationship where the following occur: no concerns reported THRIVE Score: 0 AUDIT C Alcohol Use Questionnaire (AUDIT-C) 1. How often do you have a drink containing alcohol?: 4 or more times a week 2. How many drinks containing alcohol do you have on a typical day when you are drinking?: 3 or 4 3. How often do you have six or more drinks on one occasion?: Weekly Total Score: 8 Score Reviewed/Action Taken: Yes (states that he stopped drinking completely couple of months ago - Oct 2023) BRIANNA-7 AMB Questionnaire BRIANNA-7 Date BRIANNA - 7 assessed: 01/21/24 Feeling nervous, anxious, or on edge: 0 = Not at all Not being able to stop or control worryin = Not at all Worrying too much about different things: 0 = Not at all Trouble relaxin = Not at all Being so restless that it is hard to sit still: 0 = Not at all Becoming easily annoyed or irritable: 0 = Not at all Feeling afraid as if something awful might happen: 0 = Not at all Total BRIANNA-7 score (0-4 normal; 5-9 mild; 10-14 moderate; 15-21 severe): 0 Source: Developed by Drs. Rainer Murdock, Fiona Coe, Jared Yan and colleagues, with an educational taylor from [employer]. Review of Systems Const Denies chills, Denies fatigue, Denies fever(s) and Denies headache(s) ENT Denies dysphagia, Denies dizziness, Denies otalgia, Denies headache(s), Denies neck pain, Denies odynophagia and Denies sore throat Card Denies chest pain, Denies palpitations and Denies dyspnea Resp Denies cough, Denies dyspnea and Denies wheezing GI Denies abdominal pain, Denies constipation, Denies dysphagia, Denies heartburn, Denies diarrhea, Denies nausea, Denies odynophagia and Denies vomiting Denies dysuria, Denies nocturia and Denies urinary frequency Musc Denies back pain and Denies neck pain Skin/Breast Denies rash Neuro Denies dizziness and Denies headache(s) Endo Denies fatigue and Denies palpitations Aller/Immun Denies wheezing Physical exam (Primary Care) Vital Signs: Last Vital Signs Pulse 91 01/21/24 14:25 BP 114/62 01/21/24 14:25 Pulse Ox 94 01/21/24 14:25 Oxygen Delivery Method Room Air 01/21/24 14:25 BMI result Body Mass Index 28.8 Tobacco/Smoking Status: Tobacco use Status Tobacco use date assessed 01/21/24 01/21/24 14:33 Patient Tobacco Use Status Current everyday Tobacco 01/21/24 14:33 Tobacco use type Cigarette 01/21/24 14:33 e-Cigarette/Vaping Use Never Used 01/21/24 14:33 PHQ-9: PHQ-9 Score PHQ-9: Total score 0 01/21/24 14:33 Depression Screening Interpretation: Negative Thrive Assessment: Date of Thrive Assessment Date Thrive assessed 01/21/24 01/21/24 14:33 Currently or been in a relationship where the following occur: no concerns reported Const General: no acute distress and alert HENMT Ears: TM's normal bilaterally and EAC's normal Throat: Yes posterior oropharynx normal and Yes tonsils normal (no TP congestion) Neck Neck: Yes no lymphadenopathy and Yes supple Thyroid: Thyroid normal Resp Auscultation: clear to auscultation bilaterally, no rales and no wheezes Cardio Rate: regular rate Rhythm: regular rhythm Heart sounds: no murmurs GI Palpation (GI): Soft to palpation and nontender Auscultation: normal bowel sounds General: Yes no CVA tenderness Back/Spine/Pelvis Back: no CVA tenderness Skin Rashes: no rashes Extrem General: Yes no clubbing, cyanosis or edema Results Reviewed Results Reviewed: Laboratory Tests 09/21/23 01/18/24 01/18/24 01:05 06:23 06:28 WBC 7.0 8.5 Hgb 15.3 17.0 Hct 42.8 48.3 Plt Count 210 251 Sodium 143 141 Potassium 4.0 3.8 Creatinine 0.86 0.87 Estimated GFR > 60 > 60 Random Glucose 106 Fasting Glucose 94 Calcium 9.6 AST 21 ALT 35 Triglycerides Cholesterol LDL Cholesterol, Calc 178 H HDL Cholesterol 50 Prostate Specific Ag 0.88 25-OH Vitamin D Total 20.9 L TSH 2.37 Ur Specific [place] 1.010 Urine Protein Negative Urine Glucose (UA) Negative Urine Blood Negative Ur Leukocyte Esterase Negative 01/18/24 06:28 WBC Hgb Hct Plt Count Sodium Potassium Creatinine Estimated GFR Random Glucose Fasting Glucose Calcium AST ALT Triglycerides 123 Cholesterol 252 H LDL Cholesterol, Calc HDL Cholesterol Prostate Specific Ag 25-OH Vitamin D Total TSH Ur Specific [place] Urine Protein Urine Glucose (UA) Urine Blood Ur Leukocyte Esterase Assessment and Plan Assessment & Plan (1) COPD (chronic obstructive pulmonary disease): Code(s): J44.9 - Chronic obstructive pulmonary disease, unspecified Qualifiers: COPD type: unspecified COPD Qualified Code(s): J44.9 - Chronic obstructive pulmonary disease, unspecified Plan: Stable/controlled lately with no flare ups - states that he hardly has to use his rescue inhaler (Albuterol HFA) Continue Trelegy 100-62.5-25 mcg 1 inhalation QD - Rx refilled (2) Elevated blood pressure reading: Code(s): R03.0 - Elevated blood-pressure reading, without diagnosis of hypertension Plan: His blood pressure appears much improved today Reinforced low sodium diet Patient is reminded to continue monitoring his blood pressure regularly (3) Mixed hyperlipidemia: Code(s): E78.2 - Mixed hyperlipidemia Plan: Results of his labs done a few days ago reviewed and discussed with patient - is advised that his cholesterol levels, especially his LDL cholesterol, have increased significantly from his previous numbers in 2019 Recalls that he was on Atorvastatin 10 mg QD back then but has since stopped taking the Rx Reinforced low cholesterol diet Will start him back for now on Atoravstatin 10 mg QD Will recheck his labs and fasting lipids in 4 months for follow up (4) Elevated LFTs: Code(s): R79.89 - Other specified abnormal findings of blood chemistry Plan: His LFTs were previously elevated but have returned to normal on his recent labs, likely because he has been able to lose a lot of weight recently His previous abdominal CT done in the ER revealed (+) hepatosteatosis Will continue to monitor his LFTs regularly (5) Vitamin D deficiency: Code(s): E55.9 - Vitamin D deficiency, unspecified Plan: He is advised that his Vitamin D was also low on his recent labs Will start him on Vitamin D3 2000 units QD (6) Smoker: Code(s): F17.200 - Nicotine dependence, unspecified, uncomplicated Plan: He is counseled again on smoking cessation (7) Obesity (BMI 30-39.9): Code(s): E66.9 - Obesity, unspecified Plan: Reinforced diet/exercise as tolerated/lose weight Plan Follow up in 4 months Orders: Orders Comprehensive [place]. Panel Fast 4 Months E78.00 - Pure hypercholesterolemia, unspecified Lipid Panel 4 Months E78.00 - Pure hypercholesterolemia, unspecified Vitamin D 25-OH Total 4 Months E55.9 - Vitamin D deficiency, unspecified Complete Blood Count Auto Diff 4 Months D64.9 - Anemia, unspecified TSH reflex Free T4 4 Months E78.00 - Pure hypercholesterolemia, unspecified UA CC w/rflx Micro + Cult 4 Months R30.0 - Dysuria Medications: New atorvastatin 10 mg PO BEDTIME 90 days 90 tabs 1RF cholecalciferol (vitamin D3) 50 mcg PO DAILY 90 caps 3RF 90 days E55.9 - Vitamin D deficiency, unspecified Refilled buzwuuxrana-bzmzlpuaa-wcrkhquj 100-62.5-25 mcg (Trelegy Ellipta) 1 inh inhalation DAILY 30 days 30 ea 5RF J44.1 - Chronic obstructive pulmonary disease with (acute) exacerbation Coding Level of Care Code Est Pt Level 4 (07660) Diagnoses Chronic obstructive pulmonary disease, unspecified COPD type J44.9 COPD type: unspecified COPD Elevated blood pressure reading R03.0 Mixed hyperlipidemia E78.2 Elevated LFTs R79.89 Vitamin D deficiency E55.9 Smoker F17.200 Obesity (BMI 30-39.9) E66.9
== END 2024-01-21 15:10 | disposition home or self-care (01) ==
PROVIDERS: PCP Internal Medicine; Visit Provider Internal Medicine
DX: J44.9 Chronic obstructive pulmonary disease, unspecified (principal); R03.0 Elevated blood-pressure reading, without diagnosis of hypertension; Z68.28 Body mass index [BMI] 28.0-28.9, adult; E66.9 Obesity, unspecified; E78.2 Mixed hyperlipidemia; R79.89 Other specified abnormal findings of blood chemistry; E55.9 Vitamin D deficiency, unspecified; F17.200 Nicotine dependence, unspecified, uncomplicated
CPT/HCPCS: 99214

== ENCOUNTER 2025-10-26 16:40 | Outpatient (AMB) | payer BC, SELFPAY ==
[2025-10-26 16:42] VITALS: BP 126/80; PULSE 92; O2SAT 96; BMI 29.1
--- NOTE | 2025-10-26 16:42 | MHC.PC.OV ---
Vital Signs 10/26/25 16:42 Height 5 ft 9 in Weight 197 lb BMI 29.1 BP 126/80 Blood Pressure Location Lt brachial Position Sitting Pulse 92 Pulse Source Pulse Oximeter Pulse Oximetry (%) 96 Oxygen Delivery Method Room Air Intake Visit Reasons: COPD Service Order Dispatcher Required: No Accompanied by: Self / Same As Patient Allergies No Known Allergies Allergy (Unknown, Verified 10/31/25 09:50) Medication List - Last Reconciled 10/26/25 by Eugenio Ortiz MD albuterol sulfate 90 mcg/actuation 2 inhalations inhalation QID PRN atorvastatin 10 mg PO BEDTIME 90 days cholecalciferol (vitamin D3) 50 mcg PO DAILY 90 days rbpoywndxah-ftuctuuau-vobtwnkq 100-62.5-25 mcg (Trelegy Ellipta) 1 inh inhalation DAILY 30 days ibuprofen 600 mg PO Q6H PRN inhalational spacing device (Aerochamber MV spacer) As directed Tobacco use date assessed: 10/26/25 Dental Screening Dental Screen Date: 10/26/25 Did you have a dental visit in the last 12 months?: No Did you have a dental problem in the last 6 months where you did not have access to dental care?: No Was dental information given to patient?: No HPI COPD HPI Details Patient comes in today for his follow up visit - was last seen here over a year ago in December 2023 States that he currently feels okay and just needs several of his Rx refilled He denies any headaches or dizziness Denies any chest pains, no increased shortness of breath No nausea/ vomiting, no abdominal pain No change in bowel habits noted PFSH Medical History Vitamin D deficiency Obesity (BMI 30-39.9) Smoker Elevated LFTs Mixed hyperlipidemia Erectile dysfunction Fatty liver Pulmonary nodule Hypercholesterolemia Tobacco abuse Surgical History Hx of colonoscopy (~02/24/19) History of inguinal hernia repair Family History Father Liver cancer Hepatitis C Mother Lung cancer Social History Housing: House Alcohol intake: former Year quit: 2023 Comment: 4 to 6 drinks a day (whiskey/nips) - quit drinking in October 2023 Patient Tobacco Use Status: Current everyday Tobacco user Tobacco use type: Cigarette Cigarette Packs Per Day: 1 Years Smoked: smoking since 12 y/o e-Cigarette/Vaping Use: Never Used service: No Current occupational status: employed Cognitive needs: No Hearing needs: No Vision needs: No Questionnaire PHQ-9 Over the last 2 weeks, how often have you been bothered by any of the following problems? 1. Little interest or pleasure in doing things: not at all 2. Feeling down, depressed, or hopeless: not at all 3. Trouble falling or staying asleep, or sleeping too much: not at all 4. Feeling tired or having little energy: not at all 5. Poor appetite or overeating: not at all 6. Feeling bad about yourself - or that you are a failure or have let yourself or your family down: not at all 7. Trouble concentrating on things, such as reading the newspaper or watching television: not at all 8. Moving or speaking so slowly that other people could have noticed. Or the opposite - being so fidgety or restless that you have been moving around a lot more than usual: not at all 9. Thoughts that you would be better off or of hurting yourself in some way: not at all Total score: 0 Depression Screening Interpretation: Negative Depression Screening Done: Yes 87251 - PHQ-9 Billing: Yes Source: Developed by Drs. Rainer Murdock, Fiona Coe, Jared Yan and colleagues, with an educational taylor from [employer]. Thrive Questionnaire Date Thrive assessed: 10/26/25 I am a: Patient What is your living situation today?: I have a steady place to live Within the past 12 months, did the food you bought not last and you didn't have the money to get more?: Never true Within the past 12 months, did you worry whether your food would run out before you got money to buy more?: Never true Do you have trouble paying for medicines?: No Do you have trouble getting transportation to medical appointments?: No Do you have trouble paying your heating and electricity bill?: No Do you have trouble taking care of your child, family member or friend?: No Do you have trouble with day-to-day activities such as bathing, preparing meals, shopping, managing finances, etc.?: No Are you currently unemployed and looking for a job?: No Are you interested in more education?: No Please select the resources that you would like help with: None Currently or been in a relationship where the following occur: No concerns reported THRIVE Score: 0 AUDIT C Alcohol Use Questionnaire (AUDIT-C) 1. How often do you have a drink containing alcohol?: Never 3. How often do you have six or more drinks on one occasion?: Never Total Score: 0 Score Reviewed/Action Taken: Yes BRIANNA-7 AMB Questionnaire BRIANNA-7 Date BRIANNA - 7 assessed: 10/26/25 Feeling nervous, anxious, or on edge: 0 = Not at all Not being able to stop or control worryin = Not at all Worrying too much about different things: 0 = Not at all Trouble relaxin = Not at all Being so restless that it is hard to sit still: 0 = Not at all Becoming easily annoyed or irritable: 0 = Not at all Feeling afraid as if something awful might happen: 0 = Not at all Total BRIANNA-7 score (0-4 normal; 5-9 mild; 10-14 moderate; 15-21 severe): 0 Source: Developed by Drs. Rainer Murdock, Fiona Coe, Jared Yan and colleagues, with an educational taylor from [employer]. Review of Systems Const Denies chills, Denies fatigue, Denies fever(s) and Denies headache(s) ENT Denies dysphagia, Denies dizziness, Denies otalgia, Denies headache(s), Denies neck pain, Denies odynophagia and Denies sore throat Card Denies chest pain, Denies palpitations and Denies dyspnea Resp Denies cough, Denies dyspnea and Denies wheezing GI Denies abdominal pain, Denies constipation, Denies dysphagia, Denies heartburn, Denies diarrhea, Denies nausea, Denies odynophagia and Denies vomiting Denies dysuria, Denies nocturia and Denies urinary frequency Musc Denies back pain and Denies neck pain Skin/Breast Denies rash Neuro Denies dizziness and Denies headache(s) Endo Denies fatigue and Denies palpitations Aller/Immun Denies wheezing Physical exam (Primary Care) Vital Signs: Last Vital Signs Pulse 92 10/26/25 16:42 BP 126/80 10/26/25 16:42 Pulse Ox 96 10/26/25 16:42 Oxygen Delivery Method Room Air 10/26/25 16:42 BMI result Body Mass Index 29.1 Tobacco/Smoking Status: Tobacco use Status Tobacco use date assessed 10/26/25 10/26/25 16:49 Patient Tobacco Use Status Current everyday Tobacco 10/26/25 16:49 Tobacco use type Cigarette 10/26/25 16:49 e-Cigarette/Vaping Use Never Used 10/26/25 16:49 PHQ-9: PHQ-9 Score PHQ-9: Total score 0 10/26/25 17:06 Depression Screening Interpretation: Negative Thrive Assessment: Date of Thrive Assessment Date Thrive assessed 10/26/25 10/26/25 16:49 Currently or been in a relationship where the following occur: No concerns reported Const General: no acute distress and alert HENMT Ears: TM's normal bilaterally and EAC's normal Throat: Yes posterior oropharynx normal and Yes tonsils normal (no TP congestion) Neck Neck: Yes no lymphadenopathy and Yes supple Thyroid: Thyroid normal Resp Auscultation: clear to auscultation bilaterally, no rales and no wheezes Cardio Rate: regular rate Rhythm: regular rhythm Heart sounds: no murmurs GI Palpation (GI): Soft to palpation and nontender Auscultation: normal bowel sounds General: Yes no CVA tenderness Back/Spine/Pelvis Back: no CVA tenderness Skin Rashes: no rashes Extrem General: Yes no clubbing, cyanosis or edema Coding Level of Care Code Est Pt Level 4 (00212) Diagnoses Chronic obstructive pulmonary disease, unspecified COPD type J44.9 COPD type: unspecified COPD Elevated blood pressure reading R03.0 Mixed hyperlipidemia E78.2 Elevated LFTs R79.89 Vitamin D deficiency E55.9 Smoker F17.200 Obesity (BMI 30-39.9) E66.9 Additional Codes PHQ-9 - 58317 - PHQ-9 Billing: Yes ([id number]) Assessment & Plan Assessment & Plan (1) COPD (chronic obstructive pulmonary disease): Code(s): J44.9 - Chronic obstructive pulmonary disease, unspecified Category: Medical Qualifiers: COPD type: unspecified COPD Qualified Code(s): J44.9 - Chronic obstructive pulmonary disease, unspecified Plan: Controlled - states that he hardly has to use his rescue inhaler (Albuterol HFA) for at least a couple of years now Continue Trelegy 100-62.5-25 mcg 1 inhalation QD - Rx refilled (2) Elevated blood pressure reading: Code(s): R03.0 - Elevated blood-pressure reading, without diagnosis of hypertension Category: Medical Plan: Appears resolved - his blood pressure today was excellent Reinforced low sodium diet Patient is reminded to continue monitoring his blood pressure regularly (3) Mixed hyperlipidemia: Code(s): E78.2 - Mixed hyperlipidemia Category: Medical Plan: Patient has not had any follow up labs done in a while now and should try to get some follow up labs done LEVI Reinforced low cholesterol diet Continue Atoravstatin 10 mg QD Will recheck his labs and fasting lipids again in 6 months for follow up (4) Elevated LFTs: Code(s): R79.89 - Other specified abnormal findings of blood chemistry Category: Medical Plan: His LFTs were previously elevated but have returned to normal on his recent labs, likely because he has been able to lose a lot of weight recently His previous abdominal CT done in the ER revealed (+) hepatosteatosis Will continue to monitor his LFTs regularly (5) Vitamin D deficiency: Code(s): E55.9 - Vitamin D deficiency, unspecified Category: Medical Plan: Continue Vitamin D3 2000 units QD (6) Smoker: Code(s): F17.200 - Nicotine dependence, unspecified, uncomplicated Category: Social Hx Plan: Patient is again counseled on complete smoking cessation (7) Obesity (BMI 30-39.9): Code(s): E66.9 - Obesity, unspecified Category: Medical Plan: Reinforced diet/exercise as tolerated/lose weight Plan Follow up in 6 months Orders: Orders Vitamin D 25-OH Total 10/26/25 E55.9 - Vitamin D deficiency, unspecified Complete Blood Count Auto Diff 10/26/25 D64.9 - Anemia, unspecified Comprehensive [place]. Panel Fast 10/26/25 E78.00 - Pure hypercholesterolemia, unspecified Lipid Panel 10/26/25 E78.00 - Pure hypercholesterolemia, unspecified TSH reflex Free T4 10/26/25 E78.00 - Pure hypercholesterolemia, unspecified UA CC w/rflx Micro + Cult 10/26/25 R30.0 - Dysuria Medications: Refilled atorvastatin 10 mg PO BEDTIME 90 tabs 1RF 90 days albuterol sulfate 90 mcg/actuation 2 inhalations inhalation QID PRN 6.7 grams 5RF shortness of breath or wheezing hzekxibetzp-spcfuhhlv-xruxbnxt 100-62.5-25 mcg (Trelegy Ellipta) 1 inh inhalation DAILY 30 ea 5RF 30 days J44.1 - Chronic obstructive pulmonary disease with (acute) exacerbation cholecalciferol (vitamin D3) 50 mcg PO DAILY 90 caps 3RF 90 days E55.9 - Vitamin D deficiency, unspecified
--- OUTSIDE RECORDS SUMMARY | 2025-10-26 18:04 | XMS_ITS | Patient Health Record ---
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 Phone Po Shannan ANNA Primary Care Provider Ailyn Tobias Unavailable [phone] Reason For Referral No Information Medications Medication SIG (Take, Route, Fr equency, Duration) Notes Start Date End Date Status Simvastatin 5 mg 1 PO QD Act jaci Immunizations Vaccine Route Administration Date Status Comme nts Influenza Unknown 07/03/2018 Administered Social History Tobacco Use: Social History Observation Description Date Details (start date - stop date) Current Smoker NA - NA Social History Drugs/Alcohol: Social Info Question Answer Notes Alcohol Screen Did you have a drink containing alcohol in the past year? Yes How often did you have a drink containing alcohol in the past year? 4 or more times a week (4 points) How many drinks did you have on a typical day when you were drinking in the past year? 3 or 4 drinks (1 point) How often did you have 6 or more drinks on one occasion in the past year? Weekly (3 points) Points 8 Interpretation Positive Tobacco Use: Social Info Question Answer Notes Tobacco Use/Smoking Patient is a current smoker How often do you smoke cigarettes? every day How many cigarettes a day do you smoke? 21-30 How soon after you wake up do you smoke your first cigarette? 31-60 minutes Are you interested in quitting? Thinking about quitting Additional Details Category Social Info Options Details Miscellaneous: Marital status: Occupation: [employer] ier Section Notes: Smoker 1 1/2 ppd; 2-4 drinks QPM Problems Problem Type SNOMED Code ICD Code Onset Dates Problem Status W/U Status Risk Notes Problem Screening for malignant neoplasm of colon (416367700) Encounter for screening for malignant neoplasm of colon (Z12.11) Active confirmed Problem Elevated liver enzymes level (975280625) Elevated liver enzymes (R74.8) Active confirmed Problem Fatty liver (060721542) Fatty liver (K76.0) Active confirmed Problem Pre-procedure evaluation check (208427021) Pre-procedural examination (Z01.818) Active confirmed Problem Elevated liver enzymes level (390605010) Elevated liver function tests (R94.5) Active confirmed Plan Of Treatment Pending Test Test Name Order Date GI BIOPSY 02/24/2019 LIVER PROFILE 01/25/2019 IRON + IBC (FE) 01/25/2019 FERRITIN 01/25/2019 [id number] (A1A) 01/25/2019 Future Test Test Name Order Date COLONOSCOPY 12/17/2018 Insurance Providers Payer Name Payer Address Payer Phone Subscriber Number Group Number Insured Name Patient Relationship to Insured Coverage Start Date Coverage End Date [facility] [address] [place], [place] [id number] AILYN RUBIO Self - patient is the insured Medical (General) History Medical History History ICD Code Denies IA,DM,CVA,Lung disease,renal dise ase Hyperlipidemia Reports fatty liver Surgical History Surgery Date(Month/Year) Hernia repair-right ingunial 2007
== END 2025-10-26 17:19 | disposition home or self-care (01) ==
LOC: HO.HMCH 16:41
PROVIDERS: PCP Internal Medicine; Visit Provider Internal Medicine
DX: J44.9 Chronic obstructive pulmonary disease, unspecified (principal); R03.0 Elevated blood-pressure reading, without diagnosis of hypertension; E78.2 Mixed hyperlipidemia; R79.89 Other specified abnormal findings of blood chemistry; E55.9 Vitamin D deficiency, unspecified; F17.200 Nicotine dependence, unspecified, uncomplicated; E66.9 Obesity, unspecified

== ENCOUNTER → 2025-10-26 16:40 | Outpatient (BNVA) | payer BC, SELFPAY | PROVIDERS: PCP Internal Medicine; Visit Provider Internal Medicine | DX: J44.9 Chronic obstructive pulmonary disease, unspecified (principal); R03.0 Elevated blood-pressure reading, without diagnosis of hypertension; E78.2 Mixed hyperlipidemia; R79.89 Other specified abnormal findings of blood chemistry; E55.9 Vitamin D deficiency, unspecified; E66.9 Obesity, unspecified; F17.210 Nicotine dependence, cigarettes, uncomplicated; Z68.29 Body mass index [BMI] 29.0-29.9, adult | CPT/HCPCS: 96127 ==